=== PATIENT | female | born 1955 | race Caucasian/White ===

== ENCOUNTER 2017-07-10 13:08 | Emergency (ER) | payer MEDICARE | END 2017-07-10 14:25 | disposition home or self-care (01) | LOC: ER 13:08 | DX: S82.002A Unspecified fracture of left patella, initial encounter for closed fracture (principal); I10 Essential (primary) hypertension; Z98.51 Tubal ligation status; Z98.890 Other specified postprocedural states; W18.39XA Other fall on same level, initial encounter; Y93.89 Activity, other specified; Y99.8 Other external cause status; Y92.89 Other specified places as the place of occurrence of the external cause | CPT/HCPCS: 29505; 73564; 99284-25 ==